=== PATIENT | female | born 1955 | race Caucasian/White ===

== ENCOUNTER 2017-01-31 21:15 | Emergency (ER) | payer BC ==
[2017-01-31] MEDS ORDERED: Sodium Chloride 0.9% 5 ML Syringe FLUSH PRN (21:55)
[2017-01-31] MEDS ORDERED: Sodium Chloride 0.9% 1,000 ML IV ONE (21:56)
[2017-01-31] MEDS ORDERED: Ketorolac 30 MG/ML SDV IVPUSH ONE (21:58)
[2017-01-31] MEDS ORDERED: methylPREDNISolone Sodium Succinate 125 MG/2 ML SDV IVPUSH ONE (21:58)
[2017-01-31] MEDS ORDERED: Metoclopramide 10 MG/2 ML SDV IVPUSH ONE (21:59)
[2017-01-31 22:02] VITALS: BP 154/78
--- NOTE | 2017-01-31 22:05 | EDM.PDOC ---
ED HPI GENERAL MEDICAL PROBLEM - General Chief Complaint: General Stated Complaint: body aches Time Seen by Provider: 01/31/17 21:35 Source of Information: Reports: Patient History Limitations: Reports: No limitations - History of Present Illness INITIAL COMMENTS - FREE TEXT/NARRATIVE: PT STATES SHE DOES NOT FEEL WELL. HAS BODY ACHES, SERRANO, AND NAUSEA. SEEN BY PCP YESTERDAY FOR SAME. LAB VALUES SAID TO BE WNL. UNABLE TO ACCESS. INCREASED SYNTHROID YESTERDAY AFTER TSH WAS FOUND TO BE OUT OF RANGE. DENIES ANY OTHER CHANGE OF MEDICATION, FEVER, CP, SOB, ABD PAIN, BOWEL CHANGES, OR URI SYMPTOMS. ADMITS TO EATING POORLY LAST FEW WEEKS Onset: gradual Duration: Week(s): Location: Reports: head Quality: Reports: Ache Severity: mild Improves with: Reports: None Worsens with: Reports: None Associated Symptoms: Reports: headaches, loss of appetite, nausea/vomiting. Denies: chest pain, cough, cough w sputum, fever/chills - Related Data Allergies Allergy/AdvReac Type Severity Reaction Status Date / Time cefuroxime axetil Allergy low Verified 01/31/17 21:51 [From Ceftin] platelets Sulfa (Sulfonamide Allergy Rash Verified 01/31/17 21:51 Antibiotics) Home Meds: Home Meds ALPRAZolam [Alprazolam] 0.25 mg PO ASDIRECTED PRN 02/14/14 [History] Propranolol HCl [Propranolol] 60 mg PO QAM 02/14/14 [History] SUMAtriptan [SUMAtriptan] 100 mg PO DAILY PRN 02/14/14 [History] Cephalexin [Keflex] 500 mg PO TID #21 cap 01/31/17 [Rx] Fluticasone Propionate [Fluticasone Propionate] 2 sprays INH BID 01/31/17 [ History] Levothyroxine Sodium [Levothyroxine Sodium] 75 mcg PO DAILY 01/31/17 [History] Ondansetron [Zofran ODT] 4 mg PO Q6H #14 tab.dis 01/31/17 [Rx] Past Medical History HEENT History: Reports: Impaired vision Gastrointestinal History: Reports: GERD Musculoskeletal History: Reports: None Neurological History: Reports: Migraines Endocrine/Metabolic History: Reports: Hypothyroidism Hematologic History: Reports: Anesthesia reaction, Other (see below) Other Hematologic History: platelet transfusion - Infectious Disease History Infectious Disease History: Reports: Chicken pox, Influenza, Measles - Past Surgical History Head Surgeries/Procedures: Reports: None HEENT Surgical History: Reports: Tonsillectomy GI Surgical History: Reports: Cholecystectomy, Other (see below) Other GI Surgeries/Procedures: surgery for ulcer Endocrine Surgical History: Reports: None Neurological Surgical History: Reports: None Musculoskeletal Surgical History: Reports: Other (see below) Other Musculoskeletal Surgeries/Procedures:: ulnar nerve surgery on right arm Social & Family History - Family History Family Medical History: Noncontributory - Tobacco Use Smoking Status *Q: Current Some Day Smoker Years of Tobacco use: 30 Packs/Tins Daily: 0.5 Used Tobacco, but Quit: No Second Hand Smoke Exposure: Yes - Caffeine Use Caffeine Use: Reports: Coffee, Soda, Other Other Caffeine Use: cappacino - Alcohol Use Days Per Week of Alcohol Use: 0 - Recreational Drug Use Recreational Drug Use: No - Living Situation & Occupation Living situation: Reports: Occupation: employed ED ROS GENERAL - Review of Systems Review Of Systems: ROS reveals no pertinent complaints other than HPI. Constitutional: Reports: weakness, fatigue, decreased appetite HEENT: Reports: No symptoms Respiratory: Reports: No Symptoms Cardiovascular: Reports: No symptoms Endocrine: Reports: no symptoms GI/Abdominal: Reports: Nausea. Denies: Vomiting Musculoskeletal: Reports: joint pain Skin: Reports: no symptoms Neurological: Reports: No Symptoms Psychiatric: Reports: Anxiety Hematologic/Lymphatic: Reports: no symptoms Immunologic: Reports: no symptoms ED EXAM, GENERAL - Physical Exam Exam: See Below Exam Limited By: No limitations General Appearance: alert, WD/WN, anxious Eye Exam: bilateral eye: normal inspection Ears: normal external exam, normal canal, normal TMs Nose: normal inspection, normal mucosa, no blood Throat/Mouth: Normal inspection, Normal oropharynx, No airway compromise Head: atraumatic, normocephalic Neck: normal inspection, supple, non-tender Respiratory/Chest: no respiratory distress, lungs clear, normal breath sounds, no accessory muscle use, chest non-tender Cardiovascular: regular rate, rhythm, no murmur GI/Abdominal: normal bowel sounds, soft, non tender, no organomegaly, no distention, no abnormal bruit, no mass Back Exam: normal inspection. No: CVA tenderness (L), CVA tenderness (R) Extremities: normal inspection, no pedal edema Neurological: alert, oriented, CN II-XII intact, normal cognition, no motor/ sensory deficits Psychiatric: anxious Skin Exam: Warm, Dry, Intact, Normal color, No rash Lymphatic: no adenopathy Course - Orders/Labs/Meds Orders: Active Orders 24 hr Category Date Time Status Peripheral IV Care [RC] . DIRECTED Care 01/31/17 21:56 Ordered UA W/MICROSCOPIC [URIN] Stat Lab 01/31/17 21:55 Uncollected Ketorolac [Toradol] Med 01/31/17 21:58 Once 30 mg IVPUSH ONETIME ONE Metoclopramide [Reglan] Med 01/31/17 21:59 Once 5 mg IVPUSH ONETIME ONE Sodium Chloride 0.9% @ 999 MLS/HR (1000ml) Med 01/31/17 21:56 Ordered Sodium Chloride 0.9% [Normal Saline] 1,000 ml IV .BOLUS Sodium Chloride 0.9% [Syrex Flush] Med 01/31/17 21:55 Ordered 5 ml FLUSH Q8HR PRN methylPREDNISolone Sod Succ [Solu-MEDROL] Med 01/31/17 21:58 Once 125 mg IVPUSH ONETIME ONE Peripheral IV Insertion Adult [OM.PC] Routine Oth 01/31/17 21:55 Ordered - Re-Assessments/Exams Free Text/Narrative Re-Assessment/Exam: 01/31/17 22:39 PT AFEBRILE, NONTOXIC APPEARING, FEELS BETTER, KEFLEX GIVEN Departure - Departure Time of Disposition: 22:40 Disposition: Home, Self-Care 01 Condition: good Clinical Impression: UTI, Urinary tract infectious disease Migraine Qualifiers: Migraine type: chronic without aura Status migrainosus presence: without status migrainosus Intractability: not intractable Qualified Code(s): G43.709 - Chronic migraine without aura, not intractable, without status migrainosus Instructions: Urinary Tract Infection, Adult, [id number], Migraine Headache Forms: ED Department Discharge Additional Instructions: FOLLOW UP WITH JODI IN NEXT 2 DAYS. RETURN TO ER SOONER IF SYMPTOMS CONTINUE - My Orders Last 24 Hours: My Active Orders 01/31/17 21:55 UA W/MICROSCOPIC [URIN] Stat Sodium Chloride 0.9% [Syrex Flush] 5 ml FLUSH Q8HR PRN Peripheral IV Insertion Adult [OM.PC] Routine 01/31/17 21:56 Peripheral IV Care [] . DIRECTED Sodium Chloride 0.9% @ 999 MLS/HR (1000ml) Sodium Chloride 0.9% [Normal Saline] 1,000 ml IV .BOLUS 01/31/17 21:58 Ketorolac [Toradol] 30 mg IVPUSH ONETIME ONE methylPREDNISolone Sod Succ [Solu-MEDROL] 125 mg IVPUSH ONETIME ONE 01/31/17 21:59 Metoclopramide [Reglan] 5 mg IVPUSH ONETIME ONE - Assessment/Plan Last 24 Hours: My Active Orders 01/31/17 21:55 UA W/MICROSCOPIC [URIN] Stat Sodium Chloride 0.9% [Syrex Flush] 5 ml FLUSH Q8HR PRN Peripheral IV Insertion Adult [OM.PC] Routine 01/31/17 21:56 Peripheral IV Care [RC] . DIRECTED Sodium Chloride 0.9% @ 999 MLS/HR (1000ml) Sodium Chloride 0.9% [Normal Saline] 1,000 ml IV .BOLUS 01/31/17 21:58 Ketorolac [Toradol] 30 mg IVPUSH ONETIME ONE methylPREDNISolone Sod Succ [Solu-MEDROL] 125 mg IVPUSH ONETIME ONE 01/31/17 21:59 Metoclopramide [Reglan] 5 mg IVPUSH ONETIME ONE Assessment:: uti / weakness /serrano Plan: KEFLEX / F-U WITH PCP
[2017-01-31] MEDS ORDERED: Cephalexin 250 MG Cap ONE (22:36)
[2017-01-31] MEDS ORDERED: Cephalexin 250 MG Cap PO ONE (22:37)
== END 2017-01-31 22:50 | disposition home or self-care (01) ==
LOC: KA.ED 21:15
DX: N39.0 Urinary tract infection, site not specified (principal); G43.709 Chronic migraine without aura, not intractable, without status migrainosus; K21.9 Gastro-esophageal reflux disease without esophagitis; E03.9 Hypothyroidism, unspecified; F17.210 Nicotine dependence, cigarettes, uncomplicated; Z90.49 Acquired absence of other specified parts of digestive tract; Z98.890 Other specified postprocedural states; Z79.899 Other long term (current) drug therapy; Z88.1 Allergy status to other antibiotic agents; Z88.2 Allergy status to sulfonamides
CPT/HCPCS: 81001; 87086; 87088; 96361; 96374; 96375; 99283; A9270; J1885; J2765; J2930; J7030

== ENCOUNTER 2017-03-18 13:38 | Emergency (ER) | payer BC ==
[2017-03-18 13:51] VITALS: BP 185/97
[2017-03-18] MEDS ORDERED: Ketorolac 60 MG/2 ML SDV IM ONE (14:21)
--- NOTE | 2017-03-18 14:32 | EDM.PDOC ---
ED HPI GENERAL MEDICAL PROBLEM - General Chief Complaint: Headache Stated Complaint: HEADACHE Time Seen by Provider: 03/18/17 14:17 Source of Information: Reports: Patient History Limitations: Reports: No Limitations - History of Present Illness INITIAL COMMENTS - FREE TEXT/NARRATIVE: Patient presents with a headache that started 48 hours ago. She says feels like one of her typical migraines. They occasionally last longer like this one and she usually gets Toradol 60 mg IM and it goes away. That is what she would like today as well. She has had some nausea but controls that with phenergan that she has at home. Headache Pain Score (Numeric/FACES): 10 - Related Data Allergies Allergy/AdvReac Type Severity Reaction Status Date / Time cefuroxime axetil Allergy low Verified 03/18/17 13:51 [From Ceftin] platelets Sulfa (Sulfonamide Allergy Rash Verified 03/18/17 13:51 Antibiotics) Home Meds: Home Meds ALPRAZolam [Alprazolam] 0.25 mg PO ASDIRECTED PRN 02/14/14 [History] Propranolol HCl [Propranolol] 60 mg PO QAM 02/14/14 [History] SUMAtriptan [SUMAtriptan] 100 mg PO DAILY PRN 02/14/14 [History] Fluticasone Propionate [Fluticasone Propionate] 2 sprays INH BID PRN 01/31/17 [ History] Levothyroxine Sodium [Levothyroxine Sodium] 75 mcg PO DAILY 01/31/17 [History] Promethazine HCl [Promethazine HCl] 25 mg PO DAILY PRN 03/18/17 [History] Past Medical History HEENT History: Reports: Cataract, Impaired Vision Cardiovascular History: Reports: Hypertension Respiratory History: Reports: None Gastrointestinal History: Reports: None Genitourinary History: Reports: None 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 Bleeding, Musculoskeletal History: Reports: Fracture Neurological History: Reports: Migraines Psychiatric History: Reports: Anxiety Endocrine/Metabolic History: Reports: Hypothyroidism Hematologic History: Reports: Anesthesia Reaction, Other (See Below) Other Hematologic History: platelet transfusion Dermatologic History: Reports: None - Infectious Disease History Infectious Disease History: Reports: Chicken Pox, Influenza, Measles - Past Surgical History Head Surgeries/Procedures: Reports: None HEENT Surgical History: Reports: Adenoidectomy, Tonsillectomy Cardiovascular Surgical History: Reports: None Respiratory Surgical History: Reports: None GI Surgical History: Reports: Cholecystectomy Female Surgical History: Reports: Hysterectomy Endocrine Surgical History: Reports: None Neurological Surgical History: Reports: None Musculoskeletal Surgical History: Reports: Other (See Below) Other Musculoskeletal Surgeries/Procedures:: right shoulder surgery, ulnar nerve damage right elbow Dermatological Surgical History: Reports: None Social & Family History - Family History Family Medical History: Noncontributory - Tobacco Use Smoking Status *Q: Current Some Day Smoker Years of Tobacco use: 30 Packs/Tins Daily: 0.5 Used Tobacco, but Quit: No Second Hand Smoke Exposure: No - Caffeine Use Caffeine Use: Reports: Coffee, Soda Other Caffeine Use: cappacino - Alcohol Use Days Per Week of Alcohol Use: 0 - Recreational Drug Use Recreational Drug Use: No - Living Situation & Occupation Living situation: Reports: Occupation: Employed ED ROS GENERAL - Review of Systems Review Of Systems: See Below Constitutional: Denies: Fever, Chills HEENT: Reports: Vision Change (she says that all of her longer-lasting migraines eventually make her vision slighly blurry like this one has). Denies : Ear Pain, Throat Pain Respiratory: Denies: Shortness of Breath, Cough Cardiovascular: Denies: Chest Pain, Edema, Lightheadedness, Syncope GI/Abdominal: Reports: Nausea. Denies: Abdominal Pain : Denies: Dysuria, Flank Pain, Frequency Musculoskeletal: Reports: No Symptoms Skin: Denies: Cyanosis, Jaundice, Mottled, Pallor, Diaphoresis Neurological: Reports: Headache. Denies: Confusion, Dizziness, Seizure, Syncope , Trouble Speaking, Difficulty Walking Psychiatric: Denies: Agitation, Anxiety, Confusion - Physical Exam Exam: See Below Exam Limited By: No Limitations General Appearance: Alert, WD/WN, No Apparent Distress Eye Exam: Bilateral Eye: EOMI, Normal Inspection, PERRL Ears: Normal External Exam, Hearing Grossly Normal Nose: Normal Inspection, No Blood Throat/Mouth: Normal Inspection, Normal Lips, Normal Voice, No Airway Compromise Head Exam: Atraumatic, Normocephalic Neck: Full Range of Motion Respiratory/Chest: No Respiratory Distress, Lungs Clear, Normal Breath Sounds Cardiovascular: Regular Rate, Rhythm, No Murmur Neuro Exam (Abbreviated): Alert, Oriented, CN II-XII Intact, Normal Cognition, No Motor/Sensory Deficits Back Exam: No: CVA Tenderness (L), CVA Tenderness (R) Extremities: Normal Inspection, Normal Range of Motion Psychiatric: Normal Affect, Normal Mood Skin Exam: Warm, Dry, Intact, Normal Color, No Rash Course - Vital Signs Last Recorded V/S: Last Vital Signs Temp 97.7 F 03/18/17 13:47 Pulse 86 03/18/17 13:47 Resp 20 03/18/17 13:47 BP 185/97 H 03/18/17 13:47 Pulse Ox 97 03/18/17 13:47 - Orders/Labs/Meds Meds: Medications Discontinued Medications Generic Name Dose Route Start Last Admin Trade Name Rojelio PRN Reason Stop Dose Admin Ketorolac Tromethamine 60 mg 03/18/17 14:21 Toradol IM 03/18/17 14:22 ONETIME ONE - Re-Assessments/Exams Free Text/Narrative Re-Assessment/Exam: 03/18/17 14:37 Patient remained stable throughout ER course. Following her usual Toradol injection she wants to go home and sleep while she waits for the headache to resolve. Patient discharged to home. Departure - Departure Time of Disposition: 14:31 Disposition: Home, Self-Care 01 Condition: good Clinical Impression: Migraine Qualifiers: Migraine type: unspecified Status migrainosus presence: without status migrainosus Intractability: intractable Qualified Code(s): G43.919 - Migraine, unspecified, intractable, without status migrainosus - Discharge Information Instructions: Recurrent Migraine Headache, [id number] Forms: ED Department Discharge Additional Instructions: 1. Drink 8 cups of water daily. 2. Get plenty of sleep over next 24 hours. 3. Recheck with your PCP in a few days to evaluate your migraine treatment plan. 4. Return to ER as needed.
== END 2017-03-18 14:40 | disposition home or self-care (01) ==
LOC: KA.ED 13:38
DX: G43.919 Migraine, unspecified, intractable, without status migrainosus (principal); I10 Essential (primary) hypertension; E03.9 Hypothyroidism, unspecified; F41.9 Anxiety disorder, unspecified; F17.210 Nicotine dependence, cigarettes, uncomplicated; Z88.2 Allergy status to sulfonamides; Z88.8 Allergy status to other drugs, medicaments and biological substances; Z79.899 Other long term (current) drug therapy; Z90.49 Acquired absence of other specified parts of digestive tract; Z90.710 Acquired absence of both cervix and uterus; Z98.890 Other specified postprocedural states
CPT/HCPCS: 96372; 99283; J1885

== ENCOUNTER 2017-08-26 10:26 | Emergency (ER) | payer BC ==
[2017-08-26] MEDS ORDERED: Ketorolac 60 MG/2 ML SDV IM ONE (10:35)
[2017-08-26] MEDS ORDERED: Ondansetron 4 MG Tab.DIS PO ONE (10:35)
[2017-08-26] MEDS ORDERED: diphenhydrAMINE 25 MG Cap PO ONE (10:35)
--- NOTE | 2017-08-26 10:35 | EDM.PDOC ---
ED HPI GENERAL MEDICAL PROBLEM - General Chief Complaint: Headache Stated Complaint: MIGRAINE Time Seen by Provider: 08/26/17 10:28 Source of Information: Reports: Patient History Limitations: Reports: No Limitations - History of Present Illness INITIAL COMMENTS - FREE TEXT/NARRATIVE: PT STATES SHE DEVELOPED HER TYPICAL MIGRAINE YESTERDAY AFTERNOON AND IT WAS RELIEVED WITH IMITREX. WOKE UP THIS AM WITH MIGRAINE AND NAUSEA AND IMITREX DIDN 'T WORK. HAS RECEIVED TORADOL IM IN PAST AND HAS RESOLVED SYMPTOMS. STATES SAME TYPICAL SERRANO, NO BLURRY VISION, TRAUMA, FEVER, OR NECK STIFFNESS. 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(s) (IMITREX) - Related Data Allergies Allergy/AdvReac Type Severity Reaction Status Date / Time cefuroxime axetil Allergy low Verified 03/18/17 13:51 [From Ceftin] platelets Sulfa (Sulfonamide Allergy Rash Verified 03/18/17 13:51 Antibiotics) Home Meds: Home Meds ALPRAZolam [Alprazolam] 0.25 mg PO ASDIRECTED PRN 02/14/14 [History] Propranolol HCl [Propranolol] 60 mg PO QAM 02/14/14 [History] SUMAtriptan [SUMAtriptan] 100 mg PO DAILY PRN 02/14/14 [History] Fluticasone Propionate [Fluticasone Propionate] 2 sprays INH BID PRN 01/31/17 [ History] Levothyroxine Sodium [Levothyroxine Sodium] 75 mcg PO DAILY 01/31/17 [History] Promethazine HCl [Promethazine HCl] 25 mg PO DAILY PRN 03/18/17 [History] Past Medical History HEENT History: Reports: Cataract, Impaired Vision Cardiovascular History: Reports: Hypertension Respiratory History: Reports: None Gastrointestinal History: Reports: None Genitourinary History: Reports: None 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: 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 Uterine Bleeding, Musculoskeletal History: Reports: Fracture Neurological History: Reports: Migraines Psychiatric History: Reports: Anxiety Endocrine/Metabolic History: Reports: Hypothyroidism Hematologic History: Reports: Anesthesia Reaction, Other (See Below) Other Hematologic History: platelet transfusion Dermatologic History: Reports: None - Infectious Disease History Infectious Disease History: Reports: Chicken Pox, Influenza, Measles - Past Surgical History Head Surgeries/Procedures: Reports: None HEENT Surgical History: Reports: Adenoidectomy, Tonsillectomy Cardiovascular Surgical History: Reports: None Respiratory Surgical History: Reports: None GI Surgical History: Reports: Cholecystectomy Female Surgical History: Reports: Hysterectomy Endocrine Surgical History: Reports: None Neurological Surgical History: Reports: None Musculoskeletal Surgical History: Reports: Other (See Below) Other Musculoskeletal Surgeries/Procedures:: right shoulder surgery, ulnar nerve damage right elbow Dermatological Surgical History: Reports: None Social & Family History - Family History Family Medical History: Noncontributory - Tobacco Use Smoking Status *Q: Current Some Day Smoker Years of Tobacco use: 30 Packs/Tins Daily: 0.5 Used Tobacco, but Quit: No Second Hand Smoke Exposure: No - Caffeine Use Caffeine Use: Reports: Coffee, Soda Other Caffeine Use: cappacino - Alcohol Use Days Per Week of Alcohol Use: 0 - Recreational Drug Use Recreational Drug Use: No - Living Situation & Occupation Living situation: Reports: Occupation: Employed ED ROS GENERAL - Review of Systems Review Of Systems: ROS reveals no pertinent complaints other than HPI. Constitutional: Reports: No Symptoms HEENT: Reports: No Symptoms Respiratory: Reports: No Symptoms Cardiovascular: Reports: No Symptoms Endocrine: Reports: No Symptoms GI/Abdominal: Reports: No Symptoms : Reports: No Symptoms Musculoskeletal: Reports: No Symptoms Skin: Reports: No Symptoms Neurological: Reports: Headache Psychiatric: Reports: No Symptoms Hematologic/Lymphatic: Reports: No Symptoms Immunologic: Reports: No Symptoms - Physical Exam Exam: See Below Exam Limited By: No Limitations General Appearance: Alert, WD/WN, No Apparent Distress Eye Exam: Bilateral Eye: Normal Inspection Nose: Normal Inspection, Normal Mucosa, No Blood, Other (MAXILLARY SINUS TENDERNESS TO PALP) Throat/Mouth: Normal Inspection, Normal Oropharynx, No Airway Compromise Head Exam: Atraumatic, Normocephalic Neck: Normal Inspection, Supple, Non-Tender. No: Lymphadenopathy (L), Lymphadenopathy (R) Respiratory/Chest: No Respiratory Distress, Lungs Clear, Normal Breath Sounds, No Accessory Muscle Use, Chest Non-Tender Cardiovascular: Regular Rate, Rhythm, No Murmur GI/Abdominal: Normal Bowel Sounds, Soft Neuro Exam (Abbreviated): Alert, Oriented, CN II-XII Intact, Normal Cognition, No Motor/Sensory Deficits Extremities: Normal Inspection, No Pedal Edema Psychiatric: Normal Affect, Normal Mood Skin Exam: Warm, Dry, Intact, Normal Color, No Rash Course - Re-Assessments/Exams Free Text/Narrative Re-Assessment/Exam: 08/26/17 11:10 PT AFEBRILE, NONTOXIC APPEARING, VSS, SERRANO AND NAUSEA RELIEVED. 08/26/17 11:10 Departure - Departure Time of Disposition: 11:10 Disposition: Home, Self-Care 01 Condition: Good Clinical Impression: Migraine Migraine headache Qualifiers: Migraine type: without aura Status migrainosus presence: without status migrainosus Intractability: not intractable Qualified Code(s): G43.009 - Migraine without aura, not intractable, without status migrainosus - Discharge Information Instructions: Recurrent Migraine Headache, [id number], Sinus Headache, Easy- to-Read Referrals: Ayde Landry PA-C [Primary Care Provider] - Forms: ED Department Discharge Additional Instructions: FOLLOW UP WITH PCP IN 1-2 DAYS. RETURN TO ER SOONER IF SYMPTOMS CONTINUE - Assessment/Plan Assessment:: MIGRAINE Plan: F/U WITH PCP
[2017-08-26 13:53] VITALS: BP 148/84
== END 2017-08-26 11:30 | disposition home or self-care (01) ==
LOC: KA.ED 10:26
DX: G43.009 Migraine without aura, not intractable, without status migrainosus (principal); F17.210 Nicotine dependence, cigarettes, uncomplicated; Z88.2 Allergy status to sulfonamides; Z79.899 Other long term (current) drug therapy
CPT/HCPCS: 96372; 99283; A9270; J1885

== ENCOUNTER 2018-02-24 10:26 | Emergency (ER) | payer BC ==
[2018-02-24 10:35] VITALS: BP 179/99
--- NOTE | 2018-02-24 11:01 | EDM.PDOC ---
ED HPI GENERAL MEDICAL PROBLEM - General Chief Complaint: ENT Problem Stated Complaint: SINUS INFECTION Time Seen by Provider: 02/24/18 10:45 Source of Information: Reports: Patient History Limitations: Reports: No Limitations - History of Present Illness INITIAL COMMENTS - FREE TEXT/NARRATIVE: 62 YO WF presents to ER complaining of sinus congestion with facial pain and frontal headache that began 4 days ago. Pt with longstanding history of migraine SERRANO and allergic rhinitis. Pt reports this happens frequently and she is typically treated with toradol/antiemetic and antibiotics. Pt reports 1 episode of vomiting yesterday. Pt states she has been under a lot of stress lately and believes this may be a contributing factor. Pt denies any fever/ chills, denies any neurological deficits or debilitating pain. Onset Date: 02/21/18 Duration: Day(s): (4) Location: Reports: Head Quality: Reports: Ache Severity: Moderate Improves with: Reports: None Worsens with: Reports: None Associated Symptoms: Reports: Headaches, Nausea/Vomiting. 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 Frontal Headache Pain Score (Numeric/FACES): 8 - Related Data Allergies Allergy/AdvReac Type Severity Reaction Status Date / Time cefuroxime axetil Allergy low Verified 02/24/18 10:29 [From Ceftin] platelets Sulfa (Sulfonamide Allergy Rash Verified 02/24/18 10:29 Antibiotics) Home Meds: Home Meds Propranolol HCl [Propranolol] 60 mg PO QAM 02/14/14 [History] SUMAtriptan 100 mg PO DAILY PRN 02/14/14 [History] Levothyroxine Sodium 75 mcg PO DAILY 01/31/17 [History] Amoxicillin 875 mg PO BID #20 tab 02/24/18 [Rx] Loratadine [Claritin] 10 mg PO DAILY 02/24/18 [History] Ondansetron [Zofran ODT] 4 mg PO Q6H PRN #6 tab.dis 02/24/18 [Rx] Past Medical History HEENT History: Reports: Cataract, Impaired Vision Cardiovascular History: Reports: Hypertension Respiratory History: Reports: None Gastrointestinal History: Reports: None Genitourinary History: Reports: None 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: 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 Uterine Bleeding, Musculoskeletal History: Reports: Fracture Neurological History: Reports: Migraines Psychiatric History: Reports: Anxiety Endocrine/Metabolic History: Reports: Hypothyroidism Hematologic History: Reports: Anesthesia Reaction, Other (See Below) Other Hematologic History: platelet transfusion Dermatologic History: Reports: None - Infectious Disease History Infectious Disease History: Reports: Chicken Pox, Influenza, Measles - Past Surgical History Head Surgeries/Procedures: Reports: None HEENT Surgical History: Reports: Adenoidectomy, Tonsillectomy Cardiovascular Surgical History: Reports: None Respiratory Surgical History: Reports: None GI Surgical History: Reports: Cholecystectomy Female Surgical History: Reports: Hysterectomy Endocrine Surgical History: Reports: None Neurological Surgical History: Reports: None Musculoskeletal Surgical History: Reports: Other (See Below) Other Musculoskeletal Surgeries/Procedures:: right shoulder surgery, ulnar nerve damage right elbow Dermatological Surgical History: Reports: None Social & Family History - Family History Family Medical History: Noncontributory - Tobacco Use Smoking Status *Q: Current Some Day Smoker Years of Tobacco use: 30 Packs/Tins Daily: 0.5 Used Tobacco, but Quit: No Second Hand Smoke Exposure: No - Caffeine Use Caffeine Use: Reports: Coffee, Soda Other Caffeine Use: cappacino - Alcohol Use Days Per Week of Alcohol Use: 0 - Recreational Drug Use Recreational Drug Use: No - Living Situation & Occupation Living situation: Reports: Occupation: Employed ED ROS ENT - Review of Systems Review Of Systems: See Below Constitutional: Reports: No Symptoms HEENT: Reports: Rhinitis, Sinus Problem Respiratory: Reports: No Symptoms Cardiovascular: Reports: No Symptoms Endocrine: Reports: No Symptoms GI/Abdominal: Reports: Nausea, Vomiting : Reports: No Symptoms Musculoskeletal: Reports: No Symptoms Skin: Reports: No Symptoms Neurological: Reports: No Symptoms, Headache Psychiatric: Reports: No Symptoms Hematologic/Lymphatic: Reports: No Symptoms Immunologic: Reports: No Symptoms ED EXAM, ENT - Physical Exam Exam: See Below Exam Limited By: No Limitations General Appearance: Alert, WD/WN, No Apparent Distress Eye Exam: Bilateral Eye: EOMI, PERRL Ears: Normal External Exam, Normal Canal, Hearing Grossly Normal, Normal TMs Nose: Clear Rhinorrhea Mouth/Throat: Normal Inspection, Normal Gums, Normal Lips, Normal Oropharynx, Normal Teeth Head: Atraumatic, Normocephalic, Sinus Tenderness Neck: Normal Inspection, Supple, Non-Tender, Full Range of Motion Respiratory/Chest: No Respiratory Distress, Lungs Clear, Normal Breath Sounds, No Accessory Muscle Use, Chest Non-Tender Cardiovascular: Normal Peripheral Pulses, Regular Rate, Rhythm, No Edema, No Gallop, No JVD, No Murmur, No Rub GI/Abdominal: Normal Bowel Sounds, Soft, Non-Tender, No Organomegaly, No Distention, No Abnormal Bruit, No Mass Back: Normal Inspection, Full Range of Motion Extremities: Normal Inspection, Normal Range of Motion, Non-Tender, No Pedal Edema, Normal Capillary Refill Neurological: Alert, Oriented, CN II-XII Intact, Normal Cognition, Normal Gait, Normal Reflexes, No Motor/Sensory Deficits Psychiatric: Normal Affect, Normal Mood Skin: Warm, Dry, Intact, Normal Color, No Rash Lymphatic: No Adenopathy Course - Vital Signs Last Recorded V/S: Last Vital Signs Temp 36.2 C 02/24/18 10:31 Pulse 71 02/24/18 10:31 Resp 16 02/24/18 10:31 BP 179/99 H 02/24/18 10:31 Pulse Ox 99 02/24/18 10:31 - Orders/Labs/Meds Meds: Medications Discontinued Medications Generic Name Dose Route Start Last Admin Trade Name Freq PRN Reason Stop Dose Admin Ketorolac Tromethamine 60 mg 02/24/18 11:09 Toradol IM 02/24/18 11:10 ONETIME ONE Metoclopramide HCl 10 mg 02/24/18 11:09 Reglan IM 02/24/18 11:10 ONETIME ONE Departure - Departure Time of Disposition: 11:39 Disposition: Home, Self-Care 01 Condition: Good Clinical Impression: Sinusitis chronic, frontal Headache Qualifiers: Headache type: unspecified Headache chronicity pattern: chronic headache Intractability: not intractable Qualified Code(s): R51 - Headache - Discharge Information Prescriptions: Amoxicillin 875 mg PO BID #20 tab Ondansetron [Zofran ODT] 4 mg PO Q6H PRN #6 tab.dis PRN Reason: Vomiting Instructions: Sinusitis, Adult, [id number], Sinus Headache, [id number] Referrals: Ayde Landry PA-C [Primary Care Provider] - Forms: ED Department Discharge Additional Instructions: 1. discharge home 2. amoxil 875mg PO BID 3. continue claritin/benadryl 4. zofran 4mg ODT for nausea/vomiting 5. follow up with Dr Gallegos this week 6. return to ER for worsening symptoms - Assessment/Plan Assessment:: 1. early frontal sinusitis 2. atypical migraine SERRANO Plan: 1. discharge home 2. amoxil 875mg PO BID 3. continue claritin/benadryl 4. zofran 4mg ODT for nausea/vomiting 5. follow up with Dr Gallegos this week 6. return to ER for worsening symptoms
[2018-02-24] MEDS ORDERED: Metoclopramide 10 MG/2 ML SDV IM ONE (11:09)
[2018-02-24] MEDS ORDERED: Ketorolac 60 MG/2 ML SDV IM ONE (11:09)
[2018-02-24] MEDS ORDERED: Ondansetron 4 MG Tab.DIS PO PRN (11:34)
[2018-02-24] MEDS ORDERED: Amoxicillin 500 MG Cap PO SCH (11:45)
[2018-02-24] MEDS ORDERED: Amoxicillin 875 MG Tab PO SCH (12:00)
== END 2018-02-24 11:55 | disposition home or self-care (01) ==
LOC: KA.ED 10:26
DX: J32.1 Chronic frontal sinusitis (principal); G43.809 Other migraine, not intractable, without status migrainosus; I10 Essential (primary) hypertension; E03.9 Hypothyroidism, unspecified; F17.210 Nicotine dependence, cigarettes, uncomplicated; Z88.1 Allergy status to other antibiotic agents; Z88.2 Allergy status to sulfonamides; Z79.899 Other long term (current) drug therapy
CPT/HCPCS: 96372; 99283; A9270-GY; J1885; J2765

== ENCOUNTER 2018-06-09 15:42 | Emergency (ER) | payer BC ==
[2018-06-09] MEDS ORDERED: Ketorolac 60 MG/2 ML SDV IM ONE (16:14)
[2018-06-09] MEDS ORDERED: diphenhydrAMINE 50 MG/ML SDV IM ONE (16:14)
--- NOTE | 2018-06-09 16:22 | EDM.PDOC ---
ED HPI GENERAL MEDICAL PROBLEM - General Chief Complaint: Headache Stated Complaint: MIGRAINE Time Seen by Provider: 06/09/18 16:09 Source of Information: Reports: Patient History Limitations: Reports: No Limitations - History of Present Illness INITIAL COMMENTS - FREE TEXT/NARRATIVE: Patient is a 63-year-old female who presents to the emergency department this afternoon with a complaint of migraine headache. Patient states she has a chronic history of migraine headaches, and that this headache is similar to ones in the past. Described as pressure in her forehead and face. Patient is currently taking Imitrex but is not getting relief. Patient is requesting injection of Toradol which she said has worked in the past. Patient denies dizziness, facial numbness or tingling, extremity weakness, vision changes, fever, stiff neck, nausea, vomiting, or any trauma. 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) - Related Data Allergies Allergy/AdvReac Type Severity Reaction Status Date / Time cefuroxime axetil Allergy low Verified 02/24/18 10:29 [From Ceftin] platelets Sulfa (Sulfonamide Allergy Rash Verified 02/24/18 10:29 Antibiotics) Home Meds: Home Meds Propranolol HCl [Propranolol] 60 mg PO QAM 02/14/14 [History] SUMAtriptan 100 mg PO DAILY PRN 02/14/14 [History] Levothyroxine Sodium 75 mcg PO DAILY 01/31/17 [History] Amoxicillin 875 mg PO BID #20 tab 02/24/18 [Rx] Loratadine [Claritin] 10 mg PO DAILY 02/24/18 [History] Ondansetron [Zofran ODT] 4 mg PO Q6H PRN #6 tab.dis 02/24/18 [Rx] Past Medical History HEENT History: Reports: Cataract, Impaired Vision Cardiovascular History: Reports: Hypertension Respiratory History: Reports: None Gastrointestinal History: Reports: None Genitourinary History: Reports: None 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: 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 Uterine Bleeding, Musculoskeletal History: Reports: Fracture Neurological History: Reports: Migraines Psychiatric History: Reports: Anxiety Endocrine/Metabolic History: Reports: Hypothyroidism Hematologic History: Reports: Anesthesia Reaction, Other (See Below) Other Hematologic History: platelet transfusion Dermatologic History: Reports: None - Infectious Disease History Infectious Disease History: Reports: Chicken Pox, Influenza, Measles - Past Surgical History Head Surgeries/Procedures: Reports: None HEENT Surgical History: Reports: Adenoidectomy, Tonsillectomy Cardiovascular Surgical History: Reports: None Respiratory Surgical History: Reports: None GI Surgical History: Reports: Cholecystectomy Female Surgical History: Reports: Hysterectomy Endocrine Surgical History: Reports: None Neurological Surgical History: Reports: None Musculoskeletal Surgical History: Reports: Other (See Below) Other Musculoskeletal Surgeries/Procedures:: right shoulder surgery, ulnar nerve damage right elbow Dermatological Surgical History: Reports: None Social & Family History - Family History Family Medical History: Noncontributory - Caffeine Use Caffeine Use: Reports: Coffee, Soda Other Caffeine Use: cappacino - Living Situation & Occupation Living situation: Reports: Occupation: Employed ED ROS GENERAL - Review of Systems Review Of Systems: ROS reveals no pertinent complaints other than HPI. Constitutional: Reports: No Symptoms HEENT: Reports: No Symptoms Respiratory: Reports: No Symptoms Cardiovascular: Reports: No Symptoms Endocrine: Reports: No Symptoms GI/Abdominal: Reports: No Symptoms : Reports: No Symptoms Musculoskeletal: Reports: No Symptoms Skin: Reports: No Symptoms Neurological: Reports: Headache Psychiatric: Reports: No Symptoms Hematologic/Lymphatic: Reports: No Symptoms Immunologic: Reports: No Symptoms - Physical Exam Exam: See Below Exam Limited By: No Limitations General Appearance: Alert, WD/WN Eye Exam: Bilateral Eye: Normal Inspection Ears: Normal External Exam, Normal Canal, Normal TMs Nose: Normal Inspection, Normal Mucosa, No Blood Throat/Mouth: Normal Inspection, Normal Oropharynx, No Airway Compromise Head Exam: Atraumatic, Normocephalic Neck: Normal Inspection, Supple, Non-Tender, Full Range of Motion Respiratory/Chest: No Respiratory Distress, Lungs Clear, Normal Breath Sounds, No Accessory Muscle Use, Chest Non-Tender Cardiovascular: Regular Rate, Rhythm, No Murmur GI/Abdominal: Normal Bowel Sounds, Soft, Non-Tender Neuro Exam (Abbreviated): Alert, Oriented, CN II-XII Intact, Normal Cognition, No Motor/Sensory Deficits Extremities: Normal Inspection, No Pedal Edema Psychiatric: Normal Affect, Normal Mood Skin Exam: Warm, Dry, Intact, Normal Color, No Rash Course - Orders/Labs/Meds Meds: Medications Discontinued Medications Generic Name Dose Route Start Last Admin Trade Name Rojelio PRN Reason Stop Dose Admin Diphenhydramine HCl 25 mg 06/09/18 16:14 Benadryl IM 06/09/18 16:15 ONETIME ONE Ketorolac Tromethamine 60 mg 06/09/18 16:14 Toradol IM 06/09/18 16:15 ONETIME ONE - Re-Assessments/Exams Free Text/Narrative Re-Assessment/Exam: 06/09/18 16:51 Patient afebrile, nontoxic appearing, vital signs stable. Headache has resolved. Patient will follow-up this week at [facility]. Departure - Departure Time of Disposition: 16:51 Disposition: Home, Self-Care 01 Condition: Good Clinical Impression: Migraine headache Qualifiers: Migraine type: without aura Status migrainosus presence: without status migrainosus Intractability: not intractable Qualified Code(s): G43.009 - Migraine without aura, not intractable, without status migrainosus - Discharge Information Instructions: Migraine Headache, [id number], Recurrent Migraine Headache, [id number] Referrals: Ayde Landry PA-C [Primary Care Provider] - Forms: ED Department Discharge Additional Instructions: Follow-up at [facility] this week. Return to the emergency department sooner if symptoms continue or worsen. - Assessment/Plan Assessment:: Migraine headache Plan: Follow-up at [facility] this week
[2018-06-09 16:44] VITALS: BP 170/90
== END 2018-06-09 16:55 | disposition home or self-care (01) ==
LOC: KA.ED 15:42
DX: G43.009 Migraine without aura, not intractable, without status migrainosus (principal); I10 Essential (primary) hypertension; E03.9 Hypothyroidism, unspecified; F41.9 Anxiety disorder, unspecified; Z79.899 Other long term (current) drug therapy; Z88.2 Allergy status to sulfonamides; Z88.1 Allergy status to other antibiotic agents
CPT/HCPCS: 96372; 99283; J1200; J1885

== ENCOUNTER 2019-01-11 12:14 | Emergency (ER) | payer BC ==
[2019-01-11 12:40] VITALS: BP 144/85
--- NOTE | 2019-01-11 12:54 | EDM.PDOC ---
ED HPI GENERAL MEDICAL PROBLEM - General Chief Complaint: General Stated Complaint: UTI Time Seen by Provider: 01/11/19 12:54 Source of Information: Reports: Patient History Limitations: Reports: No Limitations - History of Present Illness INITIAL COMMENTS - FREE TEXT/NARRATIVE: 63 YO WF presents to ER complaining of dysuria with frequency and urgency x 3 days. Pt reports she started taking cipro at home without evaluation by PCP and states she believes her dysuria has improved. Pt reports today she developed a migraine headache which she's prone to seasonally. Pt reports pain is frontal region with pain behind her eyes. Pt reports 2 episodes of vomiting today due to the SERRANO discomfort. Pt denies fever/chills, no neck pain, no visual changes or focal neurological deficits. Onset Date: 01/09/19 Duration: Day(s): (3) Location: Reports: Head Quality: Reports: Ache Severity: Moderate Improves with: Reports: None Worsens with: Reports: None Associated Symptoms: Reports: Headaches, Nausea/Vomiting. Denies: Confusion, Chest Pain, Cough, Fever/Chills, Rash, Seizure, Shortness of Breath, Syncope, Weakness head Pain Score (Numeric/FACES): 10 - Related Data Allergies Allergy/AdvReac Type Severity Reaction Status Date / Time cefuroxime axetil Allergy low Verified 10/06/18 11:13 [From Ceftin] platelets Sulfa (Sulfonamide Allergy Rash Verified 10/06/18 11:13 Antibiotics) Home Meds: Home Meds Propranolol HCl [Propranolol] 60 mg PO QAM 02/14/14 [History] SUMAtriptan 100 mg PO DAILY PRN 02/14/14 [History] Levothyroxine Sodium 100 mcg PO DAILY 01/31/17 [History] Ciprofloxacin HCl [Cipro] 500 mg PO BID 01/11/19 [History] Past Medical History HEENT History: Reports: Cataract, Impaired Vision Cardiovascular History: Reports: Hypertension Respiratory History: Reports: None Gastrointestinal History: Reports: None Genitourinary History: Reports: None 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 Bleeding, Musculoskeletal History: Reports: Fracture Neurological History: Reports: Migraines Psychiatric History: Reports: Anxiety Endocrine/Metabolic History: Reports: Hypothyroidism Hematologic History: Reports: Anesthesia Reaction, Other (See Below) Other Hematologic History: platelet transfusion Dermatologic History: Reports: None - Infectious Disease History Infectious Disease History: Reports: Chicken Pox, Influenza, Measles - Past Surgical History Head Surgeries/Procedures: Reports: None HEENT Surgical History: Reports: Adenoidectomy, Tonsillectomy Cardiovascular Surgical History: Reports: None Respiratory Surgical History: Reports: None GI Surgical History: Reports: Cholecystectomy Female Surgical History: Reports: Hysterectomy Endocrine Surgical History: Reports: None Neurological Surgical History: Reports: None Musculoskeletal Surgical History: Reports: Other (See Below) Other Musculoskeletal Surgeries/Procedures:: right shoulder surgery, ulnar nerve damage right elbow Dermatological Surgical History: Reports: None Social & Family History - Family History Family Medical History: Noncontributory - Tobacco Use Smoking Status *Q: Current Every Day Smoker Years of Tobacco use: 20 Packs/Tins Daily: 0.5 - Caffeine Use Caffeine Use: Reports: Coffee, Soda Other Caffeine Use: cappacino - Recreational Drug Use Recreational Drug Use: No - Living Situation & Occupation Living situation: Reports: Occupation: Employed ED ROS GENERAL - Review of Systems Review Of Systems: See Below Constitutional: Reports: No Symptoms HEENT: Reports: No Symptoms Respiratory: Reports: No Symptoms Cardiovascular: Reports: No Symptoms Endocrine: Reports: No Symptoms GI/Abdominal: Reports: No Symptoms : Reports: Dysuria, Frequency, Hematuria, Urgency Musculoskeletal: Reports: No Symptoms Skin: Reports: No Symptoms Neurological: Reports: Headache. Denies: Dizziness, Difficulty Walking, Change in Speech Psychiatric: Reports: No Symptoms Hematologic/Lymphatic: Reports: No Symptoms Immunologic: Reports: No Symptoms ED EXAM, GENERAL - Physical Exam Exam: See Below Exam Limited By: No Limitations General Appearance: Alert, WD/WN, No Apparent Distress Eye Exam: Bilateral Eye: EOMI, PERRL Ears: Normal External Exam, Normal Canal, Hearing Grossly Normal, Normal TMs Nose: Normal Inspection, Normal Mucosa, No Blood Throat/Mouth: Normal Inspection, Normal Lips, Normal Teeth, Normal Gums, Normal Oropharynx, Normal Voice, No Airway Compromise Head: Atraumatic, Normocephalic Neck: Normal Inspection, Supple, Non-Tender, Full Range of Motion Respiratory/Chest: No Respiratory Distress, Lungs Clear, Normal Breath Sounds, No Accessory Muscle Use, Chest Non-Tender Cardiovascular: Normal Peripheral Pulses, Regular Rate, Rhythm, No Edema, No Gallop, No JVD, No Murmur, No Rub GI/Abdominal: Normal Bowel Sounds, Soft, Non-Tender, No Organomegaly, No Distention, No Abnormal Bruit, No Mass Back Exam: Normal Inspection, Full Range of Motion, NT Extremities: Normal Inspection, Normal Range of Motion, Non-Tender, Normal Capillary Refill, No Pedal Edema Neurological: Alert, Oriented, CN II-XII Intact, Normal Cognition, Normal Gait, Normal Reflexes, No Motor/Sensory Deficits Psychiatric: Normal Affect, Normal Mood Skin Exam: Warm, Dry, Intact, Normal Color, No Rash Lymphatic: No Adenopathy Course - Vital Signs Last Recorded V/S: Last Vital Signs Temp 36.3 C 01/11/19 12:30 Pulse 91 01/11/19 12:30 Resp 16 01/11/19 12:30 BP 144/85 H 01/11/19 12:40 Pulse Ox - Orders/Labs/Meds Labs: Laboratory Tests 01/11/19 01/11/19 01/11/19 Range/Units 12:15 12:45 12:45 WBC 9.08 (5.00-10.00) 10^3/uL RBC 4.87 (3.80-5.50) 10^6/uL Hgb 14.8 (12.0-16.0) g/dL Hct 44.4 (37.0-47.0) % MCV 91.2 (82.0-92.0) fL MCH 30.4 (27.0-31.0) pg MCHC 33.3 (32.0-36.0) g/dL RDW 13.0 (11.5-14.5) % Plt Count 200 (150-400) 10^3/uL MPV 9.5 (7.4-10.4) fL Immature Gran % (Auto) 0.2 (0.0-5.0) % Neut % (Auto) 75.3 H (50.0-70.0) % Lymph % (Auto) 15.7 L (20.0-40.0) % [place] % (Auto) 5.1 (2.0-8.0) % Eos % (Auto) 3.1 H (1.0-3.0) % Baso % (Auto) 0.6 (0.0-1.0) % Immature Gran # (Auto) 0.02 (0.00-0.50) 10^3/uL Neut # (Auto) 6.84 (2.50-7.00) 10^3/uL Lymph # (Auto) 1.43 (1.00-4.00) 10^3/uL [place] # (Auto) 0.46 (0.10-0.80) 10^3/uL Eos # (Auto) 0.28 (0.10-0.30) 10^3/uL Baso # (Auto) 0.05 (0.00-0.10) 10^3/uL Sodium 139 (136-145) mmol/L Potassium 4.0 (3.3-5.3) mmol/L Chloride 101 (98-115) mmol/L Carbon Dioxide 24.3 (21.0-32.0) mmol/L Anion Gap 17.7 H (5-15) mmol/L BUN 12 (6-25) mg/dL Creatinine 0.88 (0.51-1.17) mg/dL Est Cr Clr Drug Dosing TNP Estimated GFR (MDRD) > 60 mL/min Glucose 93 (75 - 99) mg/dL Calcium 9.5 (8.7-10.3) mg/dL Total Bilirubin 0.8 (0.2-1.0) mg/dL AST 22 (15-37) U/L ALT 19 (12-78) U/L Alkaline Phosphatase 108 (46-116) IU/L Total Protein 8.0 (6.4-8.2) g/dL Albumin 3.89 (3.00-4.80) g/dL Lipase 102 (73-393) U/L Specimen Type Urinvoid Urine Color Yellow (YELLOW) Urine Appearance Clear (CLEAR) Urine pH 6.0 (5.0-9.0) Ur Specific [place] <= 1.005 (1.005-1.030) Urine Protein Negative (NEGATIVE) mg/dL Urine Glucose (UA) Negative (NEGATIVE) mg/dL Urine Ketones Negative (NEGATIVE) mg/dL Urine Occult Blood Small H (NEGATIVE) Urine Nitrite Negative (NEGATIVE) Urine Bilirubin Negative (NEGATIVE) Urine Urobilinogen 0.2 (0.2-1.0) E.U./dL Ur Leukocyte Esterase Negative (NEGATIVE) Urine RBC 0-5 (0-5) /HPF Urine WBC 0-5 (0-5) /HPF Ur Epithelial Cells Moderate H /LPF Urine Bacteria Not seen (NONE TO FEW) /HPF Urine Mucus Rare H (NEGATIVE) /LPF Meds: Medications Discontinued Medications Generic Name Dose Route Start Last Admin Trade Name Rojelio PRN Reason Stop Dose Admin Ketorolac Tromethamine 60 mg 01/11/19 13:02 01/11/19 13:06 Toradol IM 01/11/19 13:03 60 mg ONETIME ONE Administration Ondansetron HCl 4 mg 01/11/19 13:02 01/11/19 13:06 Zofran Odt PO 01/11/19 13:03 4 mg ONETIME ONE Administration Departure - Departure Time of Disposition: 13:26 Disposition: Home, Self-Care 01 Condition: Good Clinical Impression: Viral upper respiratory illness Migraine headache Qualifiers: Migraine type: unspecified Status migrainosus presence: without status migrainosus Intractability: intractable Qualified Code(s): G43.919 - Migraine, unspecified, intractable, without status migrainosus - Discharge Information Instructions: Recurrent Migraine Headache, Viral Illness, Adult Referrals: Glendy Lyons PA-C [Primary Care Provider] - Forms: ED Department Discharge Additional Instructions: 1. discharge home 2. continue cipro 500mg PO BID x 7 days total 3. follow up with PCP for further evaluation and treatment 4. return to ER for worsening symptoms 5. zyrtec 10mg PO QD - Assessment/Plan Assessment:: 1. migraine SERRANO 2. recent UTI- resolving Plan: 1. discharge home 2. continue cipro 500mg PO BID x 7 days total 3. follow up with PCP for further evaluation and treatment 4. return to ER for worsening symptoms
[2019-01-11] MEDS ORDERED: Ketorolac 60 MG/2 ML SDV IM ONE (13:02)
[2019-01-11] MEDS ORDERED: Ondansetron 4 MG Tab.DIS PO ONE (13:02)
[2019-01-11 13:22] LABS: ANION GAP 17.7 mmol/L (5-15); CHLORIDE,CL 101 mmol/L (98-115); SODIUM,NA 139 mmol/L (136-145)
== END 2019-01-11 13:35 | disposition home or self-care (01) ==
LOC: KA.ED 12:14
DX: G43.919 Migraine, unspecified, intractable, without status migrainosus (principal); B34.9 Viral infection, unspecified; N39.0 Urinary tract infection, site not specified; I10 Essential (primary) hypertension; F17.210 Nicotine dependence, cigarettes, uncomplicated; Z88.2 Allergy status to sulfonamides; Z88.8 Allergy status to other drugs, medicaments and biological substances; Z79.899 Other long term (current) drug therapy
CPT/HCPCS: 36415; 80053; 81001; 83690; 85025; 96372; 99283; A9270; J1885

== ENCOUNTER 2019-04-05 07:16 | Emergency (ER) | payer BC ==
[2019-04-05] MEDS ORDERED: Ketorolac 30 MG/ML SDV IM ONE (07:23)
[2019-04-05] MEDS ORDERED: PROMETHAZINE 6.25 MG/5 ML PO PRN (07:23)
[2019-04-05] MEDS ORDERED: diphenhydrAMINE 25 MG Cap PO ONE (07:25)
[2019-04-05] MEDS ORDERED: Promethazine 25 MG/ML SDV IM PRN (07:26)
[2019-04-05] MEDS ORDERED: diphenhydrAMINE 50 MG/ML SDV IM ONE (07:32)
--- NOTE | 2019-04-05 07:41 | EDM.PDOC ---
ED HPI GENERAL MEDICAL PROBLEM - General Chief Complaint: Headache Stated Complaint: migraine Time Seen by Provider: 04/05/19 07:20 Source of Information: Reports: Patient History Limitations: Reports: No Limitations - History of Present Illness INITIAL COMMENTS - FREE TEXT/NARRATIVE: 63-year-old female presents emergency room with complaints of a migraine headache. She has a long history of migraine headaches and takes Imitrex at home. Usually she can control her headaches with Imitrex but this did not seem to help. She's been experiencing nausea and light sensitivities. She has had some vomiting as well. Other than her migraine headache she denies any other complaints. No chest pain, no shortness of breath, no abdominal pain, no back pain, no neck pain. She just recently had a physical with her primary care Glendy CALLEJAS. At the times when she's had to be seen emergency room for management of her migraines she is done very well with a combination of Phenergan, Toradol, Benadryl. Onset: Gradual Onset Date: 04/04/19 Duration: Hour(s):, Getting Worse Location: Reports: Head Quality: Reports: Throbbing Severity: Severe Improves with: Reports: Medication Worsens with: Reports: Rest Associated Symptoms: Reports: Headaches, Nausea/Vomiting. 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) Headache Pain Score (Numeric/FACES): 10 - Related Data Allergies Allergy/AdvReac Type Severity Reaction Status Date / Time cefuroxime axetil Allergy low Verified 04/05/19 07:26 [From Ceftin] platelets Sulfa (Sulfonamide Allergy Rash Verified 04/05/19 07:26 Antibiotics) Home Meds: Home Meds Propranolol HCl [Propranolol] 60 mg PO QAM 02/14/14 [History] SUMAtriptan 100 mg PO DAILY PRN 02/14/14 [History] Levothyroxine Sodium 100 mcg PO DAILY 01/31/17 [History] Past Medical History HEENT History: Reports: Cataract, Impaired Vision Cardiovascular History: Reports: Hypertension Respiratory History: Reports: None Gastrointestinal History: Reports: None Genitourinary History: Reports: None 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 Bleeding, Musculoskeletal History: Reports: Fracture Neurological History: Reports: Migraines Psychiatric History: Reports: Anxiety Endocrine/Metabolic History: Reports: Hypothyroidism Hematologic History: Reports: Anesthesia Reaction, Other (See Below) Other Hematologic History: platelet transfusion Dermatologic History: Reports: None - Infectious Disease History Infectious Disease History: Reports: Chicken Pox, Influenza, Measles - Past Surgical History Head Surgeries/Procedures: Reports: None HEENT Surgical History: Reports: Adenoidectomy, Tonsillectomy Cardiovascular Surgical History: Reports: None Respiratory Surgical History: Reports: None GI Surgical History: Reports: Cholecystectomy Female Surgical History: Reports: Hysterectomy Endocrine Surgical History: Reports: None Neurological Surgical History: Reports: None Musculoskeletal Surgical History: Reports: Other (See Below) Other Musculoskeletal Surgeries/Procedures:: right shoulder surgery, ulnar nerve damage right elbow Dermatological Surgical History: Reports: None Social & Family History - Family History Family Medical History: Noncontributory - Caffeine Use Caffeine Use: Reports: Coffee, Soda Other Caffeine Use: cappacino - Living Situation & Occupation Living situation: Reports: Occupation: Employed ED ROS GENERAL - Review of Systems Review Of Systems: ROS reveals no pertinent complaints other than HPI. - Physical Exam Exam: See Below Exam Limited By: No Limitations General Appearance: Alert, WD/WN, Mild Distress Eye Exam: Bilateral Eye: EOMI Ears: Hearing Grossly Normal Nose: Normal Inspection Throat/Mouth: Normal Voice, No Airway Compromise Head Exam: Atraumatic, Normocephalic Neck: Normal Inspection Respiratory/Chest: No Respiratory Distress, Lungs Clear Cardiovascular: Regular Rate, Rhythm Neuro Exam (Abbreviated): Alert, Oriented, Normal Cognition, Normal Gait, No Motor/Sensory Deficits Back Exam: Normal Inspection Extremities: Normal Inspection Psychiatric: Normal Affect, Depressed Mood Skin Exam: Warm, Dry, Intact, Normal Color, No Rash Course - Vital Signs Last Recorded V/S: Last Vital Signs Temp 97.9 F 04/05/19 07:16 Pulse 64 04/05/19 08:29 Resp 18 04/05/19 07:16 BP 133/66 04/05/19 08:29 Pulse Ox 98 04/05/19 07:16 - Orders/Labs/Meds Orders: Active Orders 24 hr Category Date Time Status Promethazine [Phenergan] Med 04/05/19 07:26 Ordered 25 mg IM Q6H PRN Promethazine [Phenergan] Med 04/05/19 07:23 Active 25 mg PO Q4H PRN Medication Orders Promethazine HCl (Phenergan) 25 mg PO Q4H PRN PRN Reason: Nausea Promethazine HCl (Phenergan) 25 mg IM Q6H PRN PRN Reason: Nausea Last Admin: 04/05/19 07:43 Dose: 25 mg Meds: Medications Generic Name Dose Route Start Last Admin Trade Name Freq PRN Reason Stop Dose Admin Promethazine HCl 25 mg 04/05/19 07:23 Phenergan PO Q4H PRN Nausea Promethazine HCl 25 mg 04/05/19 07:26 04/05/19 07:43 Phenergan IM 25 mg Q6H PRN Administration Nausea Discontinued Medications Generic Name Dose Route Start Last Admin Trade Name Freq PRN Reason Stop Dose Admin Diphenhydramine HCl 50 mg 04/05/19 07:25 Benadryl PO 04/05/19 07:26 ONETIME ONE Diphenhydramine HCl 50 mg 04/05/19 07:32 04/05/19 07:44 Benadryl IM 04/05/19 07:33 50 mg ONETIME ONE Administration Ketorolac Tromethamine 60 mg 04/05/19 07:23 04/05/19 07:40 Toradol IM 04/05/19 07:24 60 mg ONETIME ONE Administration - Re-Assessments/Exams Free Text/Narrative Re-Assessment/Exam: 04/05/19 08:38 Patient reports that her nausea and headache have now resolved with a combination of Toradol, Phenergan, Benadryl. Her blood pressures were initially high 200/100, now 130s over 80s. Patient feels well enough to go home now Departure - Departure Time of Disposition: 08:38 Disposition: Home, Self-Care 01 Condition: Good Clinical Impression: Migraine headache Qualifiers: Migraine type: without aura Status migrainosus presence: without status migrainosus Intractability: not intractable Qualified Code(s): G43.009 - Migraine without aura, not intractable, without status migrainosus - Discharge Information Instructions: Recurrent Migraine Headache Referrals: Glendy Lyons PA-C [Primary Care Provider] - Forms: ED Department Discharge - My Orders Last 24 Hours: My Active Orders 04/05/19 07:23 Promethazine [Phenergan] 25 mg PO Q4H PRN 04/05/19 07:26 Promethazine [Phenergan] 25 mg IM Q6H PRN - Assessment/Plan Last 24 Hours: My Active Orders 04/05/19 07:23 Promethazine [Phenergan] 25 mg PO Q4H PRN 04/05/19 07:26 Promethazine [Phenergan] 25 mg IM Q6H PRN Assessment:: Migraine headache Plan: 1. Resume your regular medications including Imitrex as prescribed for migraine headaches. 2. Avoid activities that trigger migraines. 3. Follow-up with your primary care if headaches persist despite medication.
[2019-04-05 08:29] VITALS: BP 133/66
== END 2019-04-05 08:30 | disposition home or self-care (01) ==
LOC: KA.ED 07:16
DX: G43.009 Migraine without aura, not intractable, without status migrainosus (principal); I10 Essential (primary) hypertension; E03.9 Hypothyroidism, unspecified; Z88.1 Allergy status to other antibiotic agents; Z88.2 Allergy status to sulfonamides; Z79.899 Other long term (current) drug therapy; Z90.49 Acquired absence of other specified parts of digestive tract; Z98.890 Other specified postprocedural states; Z90.710 Acquired absence of both cervix and uterus
CPT/HCPCS: 96372; 99283; J1200; J1885; J2550

== ENCOUNTER 2019-10-04 10:46 | Emergency (ER) | payer BC ==
[2019-10-04 10:58] VITALS: BP 152/94; PULSE 70
[2019-10-04] MEDS: Ketorolac 60 MG/2 ML SDV IM ONE (11:12)
[2019-10-04] MEDS: diphenhydrAMINE 50 MG/ML SDV IM ONE (11:13)
[2019-10-04] MEDS: Promethazine 25 MG/ML SDV IM ONE (11:13)
--- NOTE | 2019-10-04 11:43 | EDM.PDOC ---
ED HPI GENERAL MEDICAL PROBLEM - General Chief Complaint: Headache Stated Complaint: MIGRAINE Time Seen by Provider: 10/04/19 11:05 Source of Information: Reports: Patient History Limitations: Reports: No Limitations - History of Present Illness INITIAL COMMENTS - FREE TEXT/NARRATIVE: 64-year-old female presents emergency room with complaints of migraine recurrent headache and sinus congestion since . Patient had a migraine type headache which she takes medications for on . She took Imitrex and her headache improved. She had a recurrent migraine headache again on Sunday. Once again she took Imitrex and her headache improved. Today she is having recurrence of her headache and feels that this is likely contributing to sinus congestion that she's been experiencing during this time. She did not want to take another Imitrex. She comes in today for further evaluation. She does complain of pressure over the maxillary and frontal sinus lobes. She has been nauseated and has vomited in the last 48 hours due to her headaches. She has had light sensitivity in addition. She feels that this is a similar headache that she's had in the past. Neurological weakness, changes in speech, gait or balance disturbances. Onset: Gradual Onset Date: 10/09/19 Duration: Day(s): Location: Reports: Head Quality: Reports: Ache Severity: Severe Improves with: Reports: Medication Worsens with: Reports: None Associated Symptoms: Reports: Headaches, Nausea/Vomiting. 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) Frontal Headache Pain Score (Numeric/FACES): 9 - Related Data Allergies Allergy/AdvReac Type Severity Reaction Status Date / Time cefuroxime axetil Allergy low Verified 10/04/19 10:54 [From Ceftin] platelets Sulfa (Sulfonamide Allergy Rash Verified 10/04/19 10:54 Antibiotics) Home Meds: Home Meds Propranolol HCl [Propranolol] 60 mg PO QAM 02/14/14 [History] SUMAtriptan 100 mg PO DAILY PRN 02/14/14 [History] Levothyroxine Sodium 100 mcg PO DAILY 01/31/17 [History] Past Medical History HEENT History: Reports: Cataract, Impaired Vision Cardiovascular History: Reports: Hypertension Respiratory History: Reports: None Gastrointestinal History: Reports: None Genitourinary History: Reports: None 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: 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 Uterine Bleeding, Musculoskeletal History: Reports: Fracture Neurological History: Reports: Migraines Psychiatric History: Reports: Anxiety Endocrine/Metabolic History: Reports: Hypothyroidism Hematologic History: Reports: Anesthesia Reaction, Other (See Below) Other Hematologic History: platelet transfusion Dermatologic History: Reports: None - Infectious Disease History Infectious Disease History: Reports: Chicken Pox, Influenza, Measles - Past Surgical History Head Surgeries/Procedures: Reports: None HEENT Surgical History: Reports: Adenoidectomy, Tonsillectomy Cardiovascular Surgical History: Reports: None Respiratory Surgical History: Reports: None GI Surgical History: Reports: Cholecystectomy Female Surgical History: Reports: Hysterectomy Endocrine Surgical History: Reports: None Neurological Surgical History: Reports: None Musculoskeletal Surgical History: Reports: Other (See Below) Other Musculoskeletal Surgeries/Procedures:: right shoulder surgery, ulnar nerve damage right elbow Dermatological Surgical History: Reports: None Social & Family History - Family History Family Medical History: Noncontributory - Caffeine Use Caffeine Use: Reports: Coffee, Soda Other Caffeine Use: cappacino - Living Situation & Occupation Living situation: Reports: Occupation: Employed ED ROS GENERAL - Review of Systems Review Of Systems: See Below Constitutional: Denies: Fever, Chills HEENT: Reports: Eye Pain, Sinus Problem Respiratory: Denies: Shortness of Breath, Wheezing, Cough Cardiovascular: Denies: Chest Pain, Blood Pressure Problem Endocrine: Reports: No Symptoms GI/Abdominal: Reports: Nausea, Vomiting. Denies: Abdominal Pain : Reports: No Symptoms Musculoskeletal: Reports: No Symptoms Skin: Reports: No Symptoms Neurological: Reports: Headache. Denies: Confusion, Dizziness, Numbness, Paresthesia, Trouble Speaking, Difficulty Walking, Weakness, Change in Speech, Gait Disturbance Psychiatric: Reports: No Symptoms Hematologic/Lymphatic: Reports: No Symptoms Immunologic: Reports: No Symptoms - Physical Exam Exam: See Below Exam Limited By: No Limitations General Appearance: Alert, WD/WN, No Apparent Distress Eye Exam: Bilateral Eye: EOMI, Other (Light sensitivity) Ears: Hearing Grossly Normal Nose: Normal Inspection Throat/Mouth: Normal Voice, No Airway Compromise Head Exam: Atraumatic, Normocephalic, Sinus Tenderness Neck: Normal Inspection Respiratory/Chest: No Respiratory Distress, Lungs Clear Cardiovascular: Regular Rate, Rhythm Neuro Exam (Abbreviated): Alert, Oriented, No Motor/Sensory Deficits Extremities: Normal Inspection Psychiatric: Normal Affect Skin Exam: Warm, Dry, Intact, Normal Color, No Rash Course - Vital Signs Last Recorded V/S: Last Vital Signs Temp 96.5 F 10/04/19 10:55 Pulse 70 10/04/19 10:55 Resp 16 10/04/19 10:55 BP 152/94 H 10/04/19 10:55 Pulse Ox 97 10/04/19 10:55 - Orders/Labs/Meds Meds: Medications Discontinued Medications Generic Name Dose Route Start Last Admin Trade Name Rojelio PRJacob Reason Stop Dose Admin Diphenhydramine HCl 50 mg 10/04/19 11:04 10/04/19 11:13 Benadryl IM 10/04/19 11:05 50 mg ONETIME ONE Administration Ketorolac Tromethamine 60 mg 10/04/19 11:04 10/04/19 11:12 Toradol IM 10/04/19 11:05 60 mg ONETIME ONE Administration Promethazine HCl 25 mg 10/04/19 11:04 10/04/19 11:13 Phenergan IM 10/04/19 11:05 25 mg ONETIME ONE Administration - Re-Assessments/Exams Free Text/Narrative Re-Assessment/Exam: 10/04/19 11:55 Patient reports her headache has improved from a 9 down to a 5 and feels it is manageable at this time. Her nausea is resolved with the Phenergan. Departure - Departure Time of Disposition: 11:55 Disposition: Home, Self-Care 01 Condition: Good Clinical Impression: Sinus headache Migraine Qualifiers: Migraine type: unspecified Status migrainosus presence: without status migrainosus Intractability: intractable Qualified Code(s): G43.919 - Migraine, unspecified, intractable, without status migrainosus - Discharge Information Instructions: Sinus Headache, Recurrent Migraine Headache, [id number] Referrals: Glendy Lyons PA-C [Primary Care Provider] - Forms: ED Department Discharge - Assessment/Plan Assessment:: 1. Recurrent migraine headache 2. Sinus headache Plan: 1. Rest 2. Recommended adding a decongestant such as Mucinex. 3. Afrin may be helpful for 48 hours for sinus pressure. 4. Return back to the emergency room if symptoms worsen.
== END 2019-10-04 12:00 | disposition home or self-care (01) ==
LOC: KA.ED 10:46
DX: G43.919 Migraine, unspecified, intractable, without status migrainosus (principal); I10 Essential (primary) hypertension; F41.9 Anxiety disorder, unspecified; E03.9 Hypothyroidism, unspecified; Z88.2 Allergy status to sulfonamides; Z79.899 Other long term (current) drug therapy; Z88.8 Allergy status to other drugs, medicaments and biological substances
CPT/HCPCS: 96372; 99283; J1200; J1885; J2550

== ENCOUNTER 2020-05-13 10:01 | Emergency (ER) | payer BC ==
[2020-05-13 10:12] VITALS: BP 191/90; PULSE 66
[2020-05-13] MEDS ORDERED: Sodium Chloride 0.9% 10 ML Syringe FLUSH PRN (10:21)
[2020-05-13] MEDS ORDERED: Sodium Chloride 0.9% 1,000 ML IV ONE (10:21)
[2020-05-13] MEDS ORDERED: Ondansetron 4 MG/2 ML SDV IVPUSH ONE (10:39)
[2020-05-13] MEDS ORDERED: Ondansetron 4 MG Tab.DIS PO ONE (10:46)
[2020-05-13] MEDS ORDERED: Ketorolac 60 MG/2 ML SDV IM ONE (10:59)
[2020-05-13] MEDS ORDERED: diphenhydrAMINE 50 MG/ML SDV IM ONE (10:59)
--- NOTE | 2020-05-13 11:08 | EDM.PDOC ---
ED HPI GENERAL MEDICAL PROBLEM - General Chief Complaint: General Stated Complaint: HEADACHE/RESTLESS/NAUSEA Time Seen by Provider: 05/13/20 10:44 Source of Information: Reports: Patient History Limitations: Reports: No Limitations - History of Present Illness INITIAL COMMENTS - FREE TEXT/NARRATIVE: Patient presents with nausea, vomiting, headache, and low abdominal pain "like a UTI", but no dysuria. It started at 0300 this morning. Yesterday she had a migraine and came to clinic; she was treated with Solumedrol, Toradol, Zofran, and Benadryl for it. It resolved but is back again today. She didn't sleep very well last night. She has vomited 5 times since 0300. Headache Pain Score (Numeric/FACES): 10 - Related Data Allergies Allergy/AdvReac Type Severity Reaction Status Date / Time cefuroxime axetil Allergy low Verified 05/13/20 10:13 [From Ceftin] platelets Sulfa (Sulfonamide Allergy Rash Verified 05/13/20 10:13 Antibiotics) Home Meds: Home Meds Propranolol HCl [Propranolol] 60 mg PO QAM 02/14/14 [History] SUMAtriptan 100 mg PO DAILY PRN 02/14/14 [History] Levothyroxine Sodium 100 mcg PO DAILY 01/31/17 [History] Past Medical History HEENT History: Reports: Cataract, Impaired Vision Cardiovascular History: Reports: Hypertension Respiratory History: Reports: None Gastrointestinal History: Reports: None Genitourinary History: Reports: None 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, Musculoskeletal History: Reports: Fracture Neurological History: Reports: Migraines Psychiatric History: Reports: Anxiety Endocrine/Metabolic History: Reports: Hypothyroidism Hematologic History: Reports: Anesthesia Reaction, Other (See Below) Other Hematologic History: platelet transfusion Dermatologic History: Reports: None - Infectious Disease History Infectious Disease History: Reports: Chicken Pox, Influenza, Measles - Past Surgical History Head Surgeries/Procedures: Reports: None HEENT Surgical History: Reports: Adenoidectomy, Tonsillectomy Cardiovascular Surgical History: Reports: None Respiratory Surgical History: Reports: None GI Surgical History: Reports: Cholecystectomy Female Surgical History: Reports: Hysterectomy Endocrine Surgical History: Reports: None Neurological Surgical History: Reports: None Musculoskeletal Surgical History: Reports: Other (See Below) Other Musculoskeletal Surgeries/Procedures:: right shoulder surgery, ulnar nerve damage right elbow Dermatological Surgical History: Reports: None Social & Family History - Family History Family Medical History: Noncontributory - Caffeine Use Caffeine Use: Reports: Coffee, Soda Other Caffeine Use: cappacino - Living Situation & Occupation Living situation: Reports: Occupation: Employed ED ROS GENERAL - Review of Systems Review Of Systems: See Below Constitutional: Reports: Chills, Malaise, Fatigue. Denies: Fever HEENT: Denies: Ear Pain, Throat Pain, Vision Change Respiratory: Denies: Shortness of Breath, Wheezing, Cough Cardiovascular: Denies: Chest Pain, Lightheadedness, Syncope GI/Abdominal: Reports: Abdominal Pain (mild), Nausea, Vomiting. Denies: Constipation, Diarrhea : Denies: Dysuria, Flank Pain, Frequency Musculoskeletal: Denies: Neck Pain, Shoulder Pain, Arm Pain, Back Pain, Hand Pain Skin: Denies: Cyanosis, Jaundice, Mottled, Pallor, Diaphoresis Neurological: Reports: Headache. Denies: Confusion, Dizziness, Seizure, Syncope, Trouble Speaking, Difficulty Walking Psychiatric: Denies: Agitation, Anxiety, Confusion ED EXAM, GENERAL - Physical Exam Exam: See Below Exam Limited By: No Limitations General Appearance: Alert, WD/WN, No Apparent Distress Eye Exam: Bilateral Eye: EOMI, Normal Inspection, PERRL Ears: Normal External Exam, Hearing Grossly Normal Nose: Normal Inspection, No Blood Throat/Mouth: Normal Inspection, Normal Lips, Normal Oropharynx, Normal Voice, No Airway Compromise Head: Atraumatic, Normocephalic, Sinus Tenderness (frontal and maxillary) Neck: Normal Inspection, Supple, Non-Tender, Full Range of Motion Respiratory/Chest: No Respiratory Distress, Lungs Clear, Normal Breath Sounds, No Accessory Muscle Use Cardiovascular: Normal Peripheral Pulses, Regular Rate, Rhythm, No Edema, No Murmur Peripheral Pulses: 2+: Carotid (L), Carotid (R), Radial (L), Radial (R), Posterior Tibial (L), Posterior Tibial (R) GI/Abdominal: Normal Bowel Sounds, Soft, Non-Tender (feels okay now) Back Exam: Normal Inspection, Full Range of Motion. No: CVA Tenderness (L), CVA Tenderness (R) Extremities: Normal Inspection, Normal Range of Motion, Non-Tender, No Pedal Edema Neurological: Alert, Oriented, Normal Cognition, No Motor/Sensory Deficits Psychiatric: Normal Affect, Normal Mood (a little anxious) Skin Exam: Warm, Dry, Intact, Normal Color, No Rash Course - Vital Signs Last Recorded V/S: Last Vital Signs Temp 97.5 F 05/13/20 10:07 Pulse 66 05/13/20 10:07 Resp 14 05/13/20 10:07 BP 191/90 H 05/13/20 10:07 Pulse Ox 96 05/13/20 10:07 - Orders/Labs/Meds Orders: Active Orders 24 hr Category Date Time Status Peripheral IV Care [RC] . DIRECTED Care 05/13/20 10:21 Active Sodium Chloride 0.9% [Saline Flush] Med 05/13/20 10:21 Active 10 ml FLUSH Q8HR PRN Peripheral IV Insertion Adult [OM.PC] Routine Oth 05/13/20 10:21 Ordered Medication Orders Sodium Chloride (Saline Flush) 10 ml FLUSH Q8HR PRN PRN Reason: keep vein open Labs: Laboratory Tests 05/13/20 05/13/20 05/13/20 Range/Units 10:21 11:00 11:00 WBC 16.76 H D (5.00-10.00) 10^3/uL RBC 4.72 (3.80-5.50) 10^6/uL Hgb 13.8 (12.0-16.0) g/dL Hct 42.8 (37.0-47.0) % MCV 90.7 (82.0-92.0) fL MCH 29.2 (27.0-31.0) pg MCHC 32.2 (32.0-36.0) g/dL RDW 12.6 (11.5-14.5) % Plt Count 208 (150-400) 10^3/uL MPV 10.0 (7.4-10.4) fL Immature Gran % (Auto) 0.5 (0.0-5.0) % Neut % (Auto) 89.4 H (50.0-70.0) % Lymph % (Auto) 7.0 L (20.0-40.0) % [place] % (Auto) 3.0 (2.0-8.0) % Eos % (Auto) 0.0 L (1.0-3.0) % Baso % (Auto) 0.1 (0.0-1.0) % Neut # (Auto) 15.00 H (2.50-7.00) 10^3/uL Lymph # (Auto) 1.17 (1.00-4.00) 10^3/uL [place] # (Auto) 0.50 (0.10-0.80) 10^3/uL Eos # (Auto) 0.00 L (0.10-0.30) 10^3/uL Baso # (Auto) 0.01 (0.00-0.10) 10^3/uL Immature Gran # (Auto) 0.08 (0.00-0.50) 10^3/uL Sodium 137 (136-145) mmol/L Potassium 4.3 (3.3-5.3) mmol/L Chloride 104 (98-115) mmol/L Carbon Dioxide 26.9 (21.0-32.0) mmol/L Anion Gap 10.4 (5-15) mmol/L BUN 14 (6-25) mg/dL Creatinine 0.75 (0.51-1.17) mg/dL Est Cr Clr Drug Dosing 72.72 mL/min Estimated GFR (MDRD) > 60 mL/min Glucose 111 H (75 - 99) mg/dL Calcium 9.7 (8.7-10.3) mg/dL Specimen Type Urincc Urine Color Yellow (YELLOW) Urine Appearance Slightly cloudy H (CLEAR) Urine pH 8.5 (5.0-9.0) Ur Specific [place] 1.020 (1.005-1.030) Urine Protein 30 H (NEGATIVE) mg/dL Urine Glucose (UA) Negative (NEGATIVE) mg/dL Urine Ketones Negative (NEGATIVE) mg/dL Urine Occult Blood Small H (NEGATIVE) Urine Nitrite Negative (NEGATIVE) Urine Bilirubin Negative (NEGATIVE) Urine Urobilinogen 0.2 (0.2-1.0) E.U./dL Ur Leukocyte Esterase Negative (NEGATIVE) Urine RBC 40-50 H (0-5) /HPF Urine WBC 0-5 (0-5) /HPF Ur Epithelial Cells Few /LPF Amorphous Sediment Few (0/HPF) /HPF Urine Bacteria Few (NONE TO FEW) /HPF Meds: Medications Generic Name Dose Route Start Last Admin Trade Name Freq PRN Reason Stop Dose Admin Sodium Chloride 10 ml 05/13/20 10:21 Saline Flush FLUSH Q8HR PRN keep vein open Discontinued Medications Generic Name Dose Route Start Last Admin Trade Name Rojelio PRN Reason Stop Dose Admin Diphenhydramine HCl 50 mg 05/13/20 10:59 05/13/20 11:10 Benadryl IM 05/13/20 11:00 50 mg ONETIME ONE Administration Sodium Chloride 1,000 mls @ 999 mls/hr 05/13/20 10:21 Normal Saline IV 05/13/20 11:21 .BOLUS ONE Ketorolac Tromethamine 60 mg 05/13/20 10:59 05/13/20 11:09 Toradol IM 05/13/20 11:00 60 mg ONETIME ONE Administration Ondansetron HCl 4 mg 05/13/20 10:39 Zofran IVPUSH 05/13/20 10:40 ONETIME ONE Ondansetron HCl 4 mg 05/13/20 10:46 05/13/20 10:49 Zofran Odt PO 05/13/20 10:47 4 mg ONETIME ONE Administration - Re-Assessments/Exams Free Text/Narrative Re-Assessment/Exam: 05/13/20 11:44 WBC and ANC are elevated. This could be partially due to the vomiting and recent steroid but I feel there is a sinus infection going on too. Discussed findings and treatment plan with patient. She is starting to feel quite a bit better after the Toradol, Benadryl, Zofran. She had a bad reaction (low platelets) to cefuroxime many years ago; we will treat the sinus infection with Augmentin. Patient says she does okay with it as long as she eats before taking it. Pt discharged to home in stable condition. Departure - Departure Time of Disposition: 11:39 Disposition: Home, Self-Care 01 Condition: Good Clinical Impression: Sinus headache Acute sinus infection Qualifiers: Sinusitis location: frontal Recurrence: not specified as recurrent Qualified Code(s): J01.10 - Acute frontal sinusitis, unspecified Migraine headache Qualifiers: Migraine type: without aura Status migrainosus presence: without status migrainosus Intractability: not intractable Qualified Code(s): G43.009 - Migraine without aura, not intractable, without status migrainosus - Discharge Information Instructions: Sinus Headache, [id number] Referrals: Glendy Lyons PA-C [Primary Care Provider] - Forms: ED Department Discharge Additional Instructions: Take the antibiotic as directed. Drink 8 cups of water daily. Follow up with your PCP if not resolving with treatment. Sepsis Event Note (ED) - Evaluation Sepsis Screening Result: No Definite Risk - Focused Exam Vital Signs: Vital Signs Temp Pulse Resp BP Pulse Ox 05/13/20 10:07 97.5 F 66 14 191/90 H 96 - My Orders Last 24 Hours: My Active Orders 05/13/20 10:21 Peripheral IV Care [RC] . DIRECTED Sodium Chloride 0.9% [Saline Flush] 10 ml FLUSH Q8HR PRN Peripheral IV Insertion Adult [OM.PC] Routine - Assessment/Plan Last 24 Hours: My Active Orders 05/13/20 10:21 Peripheral IV Care [RC] . DIRECTED Sodium Chloride 0.9% [Saline Flush] 10 ml FLUSH Q8HR PRN Peripheral IV Insertion Adult [OM.PC] Routine
[2020-05-13 11:28] LABS: ANION GAP 10.4 mmol/L (5-15); CHLORIDE,CL 104 mmol/L (98-115); SODIUM,NA 137 mmol/L (136-145)
== END 2020-05-13 11:50 | disposition home or self-care (01) ==
LOC: KA.ED 10:01
DX: G43.009 Migraine without aura, not intractable, without status migrainosus (principal); J01.10 Acute frontal sinusitis, unspecified; I10 Essential (primary) hypertension; E03.9 Hypothyroidism, unspecified; Z88.2 Allergy status to sulfonamides; Z88.1 Allergy status to other antibiotic agents; Z79.899 Other long term (current) drug therapy
CPT/HCPCS: 36415; 80048; 81001; 85025; 96372; 99283; 99284; A9270-GY; J1200; J1885

== ENCOUNTER 2021-05-15 11:43 | Emergency (ER) | payer BC ==
--- NOTE | 2021-05-15 12:09 | EDM.PDOC ---
ED HPI GENERAL MEDICAL PROBLEM - General Chief Complaint: Genitourinary Problem Stated Complaint: UTI? Time Seen by Provider: 05/15/21 11:57 Source of Information: Reports: Patient History Limitations: Reports: No Limitations - History of Present Illness INITIAL COMMENTS - FREE TEXT/NARRATIVE: 66 YO WF PRESENTS TO ER DYSURIA AND HEMATURIA WHICH BEGAN TODAY. PT REPORTS SUDDEN ONSET OF SYMPTOMS. PT REPORTS MILD RIGHT FLANK PAIN BUT DENIES FEVER/CHILLS, OR NAUSEA/VOMITING. PT REPORTS A REMOTE HISTORY OF PYELONEPHRITIS. PT STATES HER LOW BACK PAIN FEELS LIKE MILD SORENESS THAT IS WORSE WITH MOVEMENT. PT DENIES TAKING ANY ANTICOAGULATION Onset: Today Location: Reports: Abdomen Quality: Reports: Ache Severity: Mild Improves with: Reports: None Worsens with: Reports: None Associated Symptoms: Reports: No Other Symptoms, Malaise. Denies: Fever/Chills, Nausea/Vomiting - Related Data Allergies Allergy/AdvReac Type Severity Reaction Status Date / Time cefuroxime axetil Allergy low Verified 05/15/21 12:06 [From Ceftin] platelets Sulfa (Sulfonamide Allergy Rash Verified 05/15/21 12:06 Antibiotics) Home Meds: Home Meds Propranolol HCl [Propranolol] 60 mg PO QAM 02/14/14 [History] SUMAtriptan 100 mg PO DAILY PRN 02/14/14 [History] Levothyroxine Sodium 112 mcg PO DAILY 01/31/17 [History] Ciprofloxacin HCl [Cipro] 500 mg PO BID #14 tablet 05/15/21 [Rx] Phenazopyridine HCl [Pyridium] 200 mg PO TID #3 tablet 05/15/21 [Rx] Past Medical History HEENT History: Reports: Cataract, Impaired Vision Cardiovascular History: Reports: Hypertension Respiratory History: Reports: None Gastrointestinal History: Reports: None Genitourinary History: Reports: None [employer]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[employer] History: Reports: 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 Uterine Bleeding, Musculoskeletal History: Reports: Fracture Neurological History: Reports: Migraines Psychiatric History: Reports: Anxiety Endocrine/Metabolic History: Reports: Hypothyroidism Hematologic History: Reports: Anesthesia Reaction, Other (See Below) Other Hematologic History: platelet transfusion Dermatologic History: Reports: None - Infectious Disease History Infectious Disease History: Reports: Chicken Pox, Influenza, Measles - Past Surgical History Head Surgeries/Procedures: Reports: None HEENT Surgical History: Reports: Adenoidectomy, Tonsillectomy Cardiovascular Surgical History: Reports: None Respiratory Surgical History: Reports: None GI Surgical History: Reports: Cholecystectomy Female Surgical History: Reports: Hysterectomy Endocrine Surgical History: Reports: None Neurological Surgical History: Reports: None Musculoskeletal Surgical History: Reports: Other (See Below) Other Musculoskeletal Surgeries/Procedures:: right shoulder surgery, ulnar nerve damage right elbow Dermatological Surgical History: Reports: None Social & Family History - Family History Family Medical History: No Pertinent Family History - Caffeine Use Caffeine Use: Reports: Coffee, Soda Other Caffeine Use: cappacino - Living Situation & Occupation Living situation: Reports: Occupation: Employed ED ROS GENERAL - Review of Systems Review Of Systems: See Below Constitutional: Reports: No Symptoms HEENT: Reports: No Symptoms Respiratory: Reports: No Symptoms Cardiovascular: Reports: No Symptoms Endocrine: Reports: No Symptoms GI/Abdominal: Reports: No Symptoms : Reports: Dysuria, Flank Pain, Frequency, Hematuria, Urgency Musculoskeletal: Reports: No Symptoms Skin: Reports: No Symptoms Neurological: Reports: No Symptoms Psychiatric: Reports: No Symptoms Hematologic/Lymphatic: Reports: No Symptoms Immunologic: Reports: No Symptoms ED EXAM, RENAL/ - Physical Exam Exam: See Below Exam Limited By: No Limitations General Appearance: Alert, WD/WN, No Apparent Distress Head: Atraumatic, Normocephalic Neck: Normal Inspection, Supple, Non-Tender, Full Range of Motion Respiratory/Chest: No Respiratory Distress, Lungs Clear, Normal Breath Sounds, No Accessory Muscle Use, Chest Non-Tender Cardiovascular: Normal Peripheral Pulses, Regular Rate, Rhythm, No Edema, No Gallop, No JVD, No Murmur, No Rub GI/Abdominal: Normal Bowel Sounds, Soft, Non-Tender, No Organomegaly, No Distention, No Abnormal Bruit, No Mass Back Exam: CVA Tenderness (R) Extremities: Normal Inspection, Normal Range of Motion, Non-Tender, Normal Capillary Refill, No Pedal Edema Neurological: Alert, Oriented, CN II-XII Intact, Normal Cognition, Normal Gait, Normal Reflexes, No Motor/Sensory Deficits Psychiatric: Normal Affect, Normal Mood Skin Exam: Warm, Dry, Intact, Normal Color, No Rash Lymphatic: No Adenopathy Course - Vital Signs Last Recorded V/S: Last Vital Signs Temp 98.5 F 05/15/21 12:11 Pulse 79 05/15/21 12:11 Resp 16 05/15/21 12:11 BP 180/103 H 05/15/21 12:11 Pulse Ox 97 05/15/21 12:11 - Orders/Labs/Meds Labs: Laboratory Tests 05/15/21 Range/Units 12:00 Specimen Type Urincc Urine Color Red H (YELLOW) Urine Appearance Cloudy H (CLEAR) Urine pH 7.0 (5.0-9.0) Ur Specific [place] 1.015 (1.005-1.030) Urine Protein >=300 H (NEGATIVE) mg/dL Urine Glucose (UA) Negative (NEGATIVE) mg/dL Urine Ketones Negative (NEGATIVE) mg/dL Urine Occult Blood Large H (NEGATIVE) Urine Nitrite Negative (NEGATIVE) Urine Bilirubin Small H (NEGATIVE) Urine Urobilinogen 1.0 (0.2-1.0) E.U./dL Ur Leukocyte Esterase Trace H (NEGATIVE) Urine RBC >100 H (0-5) /HPF Urine WBC 0-5 (0-5) /HPF Ur Epithelial Cells Occasional /LPF Urine Bacteria Not seen (NONE TO FEW) /HPF - Radiology Interpretation Free Text/Narrative:: DISCUSSED UA RESULTS- SUSPECT UTI BASED ON PATIENTS PRESENTATION AND SYMPTOMS. DISCUSSED RENAL CALCULI EVALUATION INCLUDING A CT SCAN BUT PATIENT DEFERRED. PT WILL FOLLOW UP IN CLINIC LATER THIS WEEK FOR UA CULTURE RESULTS. PT NONTOXIC, NAD, ALERT AND ORIENTED AND WOULD LIKE TO BE DISCHARGED HOME Departure - Departure Time of Disposition: 12:42 Disposition: Home, Self-Care 01 Condition: Good Clinical Impression: Hematuria syndrome, UTI, Urinary tract infectious disease - Discharge Information Prescriptions: Ciprofloxacin HCl [Cipro] 500 mg PO BID #14 tablet Phenazopyridine HCl [Pyridium] 200 mg PO TID #3 tablet Instructions: Urinary Tract Infection, Adult Referrals: Tsering Reyes MD [Primary Care Provider] - Forms: ED Department Discharge Additional Instructions: 1. DISCHARGE HOME 2. CIPRO 500MG TWICE/DAY X 7 DAYS 3. PYRIDIUM 200MG EVERY 8 HOURS NEEDED FOR PAIN 4. FOLLOW UP IN CLINIC LATER THIS WEEK FOR URINARY CULTURE RESULTS 5. RETURN TO ER FOR WORSENING SYMPTOMS Sepsis Event Note (ED) - Focused Exam Vital Signs: Vital Signs Temp Pulse Resp BP Pulse Ox 05/15/21 12:11 98.5 F 79 16 180/103 H 97 - Assessment/Plan Assessment:: 1. SYMPTOMATIC UTI 2. HEMATURIA Plan: 1. DISCHARGE HOME 2. CIPRO 500MG TWICE/DAY X 7 DAYS 3. PYRIDIUM 200MG EVERY 8 HOURS NEEDED FOR PAIN 4. FOLLOW UP IN CLINIC LATER THIS WEEK FOR URINARY CULTURE RESULTS 5. RETURN TO ER FOR WORSENING SYMPTOMS
[2021-05-15 12:13] VITALS: BP 180/103; PULSE 79
[2021-05-15] MEDS: Ciprofloxacin 500 MG Tab PO ONE (13:05)
[2021-05-15] MEDS: Phenazopyridine 100 MG Tab PO SCH (13:05)
== END 2021-05-15 13:05 | disposition home or self-care (01) ==
LOC: KA.ED 11:43
DX: N39.0 Urinary tract infection, site not specified (principal); R31.9 Hematuria, unspecified; I10 Essential (primary) hypertension; G43.909 Migraine, unspecified, not intractable, without status migrainosus; E03.9 Hypothyroidism, unspecified; Z88.2 Allergy status to sulfonamides; Z88.1 Allergy status to other antibiotic agents; Z79.899 Other long term (current) drug therapy
CPT/HCPCS: 81001; 87086; 99284; A9270-GY

== ENCOUNTER 2022-09-23 09:52 | Emergency (ER) | payer BC, MEDICARE ==
[2022-09-23] MEDS ORDERED: Ketorolac 60 MG/2 ML SDV IM ONE (10:16)
[2022-09-23 10:17] VITALS: BP 178/93; PULSE 69
== END 2022-09-23 10:30 | disposition home or self-care (01) ==
LOC: KA.ED 09:52
DX: G43.009 Migraine without aura, not intractable, without status migrainosus (principal); J32.1 Chronic frontal sinusitis; E03.9 Hypothyroidism, unspecified; I10 Essential (primary) hypertension; Z88.1 Allergy status to other antibiotic agents; Z88.2 Allergy status to sulfonamides; Z79.899 Other long term (current) drug therapy
CPT/HCPCS: 96372; 99283; J1885

== ENCOUNTER 2023-05-29 10:22 | Emergency (ER) | payer BC ==
[2023-05-29 10:28] VITALS: PULSE 68
[2023-05-29] MEDS: Ketorolac 30 MG/ML SDV IM ONE (10:36)
[2023-05-29] MEDS: Ondansetron 4 MG Tab.DIS PO ONE (10:38)
[2023-05-29] MEDS ORDERED: Sodium Chloride 0.9% 10 ML Syringe FLUSH PRN (11:08)
[2023-05-29] MEDS: Sodium Chloride 0.9% 1,000 ML IV ONE (11:20)
[2023-05-29] MEDS: Ondansetron 4 MG/2 ML SDV IVPUSH ONE (12:24)
[2023-05-29 17:38] VITALS: BP 176/88
== END 2023-05-29 12:42 | disposition home or self-care (01) ==
LOC: KA.ED 10:22
DX: G43.009 Migraine without aura, not intractable, without status migrainosus (principal); I10 Essential (primary) hypertension; E03.9 Hypothyroidism, unspecified; Z88.1 Allergy status to other antibiotic agents; Z88.2 Allergy status to sulfonamides; Z79.899 Other long term (current) drug therapy
CPT/HCPCS: 96361; 96372; 96374; 99283; 99283-25; A9270-GY; J1885; J2405; J7030